=== PATIENT | female | born 1990 | race Caucasian/White ===

== ENCOUNTER 2018-11-10 22:23 | Inpatient (IN) | payer MEDICAID ==
[~2018-11-10] VITALS: Ht 157.5 cm; Wt 70.8 kg
[2018-11-11] VITALS (13 sets, daily range): BP systolic 104–133; BP diastolic 67–89
[2018-11-11] MEDS ORDERED: IBUPROFEN 800 MG TABLET PO ONE (00:30)
[2018-11-11] MEDS ORDERED: ZOLPIDEM TARTRATE 10 MG TABLET PO ONE (00:30)
[2018-11-11 00:52] LABS: BASOPHILS % (AUTO) 0.5 % (0.0-2.0); EOSINOPHILS % (AUTO) 0.1 % (1.0-6.0); HEMATOCRIT 47.5 % (36-46); HEMOGLOBIN 15.9 g/dL (12.0-16.0); LYMPHOCYTES % (AUTO) 45.4 % (22.0-44.0); MEAN CORPUSCULAR HEMOGLOBIN 32.2 pg (26.0-34.0); MEAN CORPUSCULAR HGB CONC 33.4 G/dL (31.0-37.0); MEAN CORPUSCULAR VOLUME 96 fL (80-100); MONOCYTES # (AUTO) 0.5 K/uL (0.1-1.0); NEUTROPHILS # (AUTO) 3.2 K/uL (1.8-7.7); PLATELET COUNT (AUTO) 332 K/uL (150-450); RED BLOOD CELL COUNT(AUTO) 4.93 MIL/uL (4.00-5.20); RED CELL DISTRIBUTION WIDTH 12.7 % (11.5-14.5)
[2018-11-11 01:00] LABS: ANION GAP 13 mmol/L (8-16); CALCIUM, TOTAL 9.1 mg/dL (8.8-10.5); CARBON DIOXIDE 26 mmol/L (22-29); CHLORIDE 105 mmol/L (98-107); CREATININE 0.82 mg/dL (0.60-1.30); GLOMERULAR FILTR. RATE CALC > 60 mL/min (>60); GLUCOSE,RANDOM 120 mg/dL (70-110); POTASSIUM 4.2 mmol/L (3.5-5.1); SODIUM SERUM 144 mmol/L (136-145); UREA NITROGEN, BLOOD 8 mg/dL (7-18)
[2018-11-11 01:14] LABS: ALANINE AMINOTRANSFERASE 42 U/L (12-78); ALBUMIN 4.3 g/dL (3.4-5.0); ALKALINE PHOSPHATASE 72 U/L (46-116); ASPARTATE AMINOTRANSFERASE 26 U/L (15-37); BILIRUBIN,TOTAL 0.4 mg/dL (0.1-1.0); HCG,QUANTITATIVE 1 mIU/mL (0-6); TOTAL PROTEIN, SERUM 8.5 g/dL (6.4-8.2)
[2018-11-11 01:21] LABS: AMPHET/METH SCREEN,URINE NEGATIVE (NEGATIVE); BARBITURATE SCREEN, URINE NEGATIVE (NEGATIVE); BENZODIAZEPINES SCREEN,URINE NEGATIVE (NEGATIVE); CANNABINOID SCREEN,URINE NEGATIVE (NEGATIVE); COCAINE SCREEN,URINE POSITIVE (NEGATIVE); METHADONE SCREEN, URINE NEGATIVE (NEGATIVE); OPIATE SCREEN,URINE NEGATIVE (NEGATIVE)
[2018-11-11 01:22] LABS: PHENCYCLIDINE SCREEN,URINE NEGATIVE (NEGATIVE)
[2018-11-11] MEDS ORDERED: HALOPERIDOL 5 MG TABLET PO PRN (02:00)
[2018-11-11] MEDS ORDERED: LORazepam 2 MG TABLET PO PRN (02:00)
[2018-11-11] MEDS ORDERED: ZOLPIDEM TARTRATE 10 MG TABLET PO PRN (02:00)
[2018-11-11] MEDS ORDERED: NICOTINE 14 MG/24 HOUR PATCH TD PRN (07:15)
[2018-11-11] MEDS ORDERED: ONDANSETRON HCL 4 MG TABLET PO PRN (07:15)
[2018-11-11] MEDS ORDERED: CloNIDine HCL 0.1 MG TABLET PO PRN (07:15)
[2018-11-11] MEDS ORDERED: DOCUSATE SODIUM 100 MG CAPSULE PO PRN (07:15)
[2018-11-11] MEDS ORDERED: GuaiFENesin/D-METHORPHAN [SUGAR-FREE] 200-20MG/10 ML SYRUP UDCUP PO PRN (07:15)
[2018-11-11] MEDS ORDERED: LOPERAMIDE HCL 2 MG CAPSULE PO PRN (07:15)
[2018-11-11] MEDS ORDERED: PETROLATUM,WHITE 28 GM JELLY TP PRN (07:15)
[2018-11-11] MEDS ORDERED: MAGNESIUM HYDROXIDE SUSPENSION 30 ML UDCUP PO PRN (07:15)
[2018-11-11] MEDS ORDERED: MAG HYDROX/AL HYDROX/SIMETH ES 30 ML SUSPENSION UDCUP PO PRN (07:15)
[2018-11-11] MEDS ORDERED: ALBUTEROL SULFATE HFA 90 MCG/PUFF 8 GM INHALER IH PRN (07:15)
[2018-11-11] MEDS: VENLAFAXINE HCL 75 MG ER CAPSULE PO SCH (11:45)
[2018-11-11] MEDS: IBUPROFEN 400 MG TABLET PO PRN (17:24)
[2018-11-11] MEDS: ACETAMINOPHEN 325 MG TABLET PO PRN (21:37)
[2018-11-12] VITALS (7 sets, daily range): BP systolic 113–128; BP diastolic 65–85
[2018-11-12 08:03] LABS: BASOPHILS % (AUTO) 1.1 % (0.0-2.0); EOSINOPHILS % (AUTO) 0.6 % (1.0-6.0); HEMATOCRIT 40.8 % (36-46); HEMOGLOBIN 14.1 g/dL (12.0-16.0); LYMPHOCYTES # (AUTO) 1.5 K/uL (1.0-4.8); LYMPHOCYTES % (AUTO) 35.3 % (22.0-44.0); MEAN CORPUSCULAR HEMOGLOBIN 32.7 pg (26.0-34.0); MEAN CORPUSCULAR HGB CONC 34.5 G/dL (31.0-37.0); MEAN CORPUSCULAR VOLUME 95 fL (80-100); MONOCYTES # (AUTO) 0.3 K/uL (0.1-1.0); MONOCYTES % (AUTO) 7.7 % (2.0-9.0); NEUTROPHILS # (AUTO) 2.4 K/uL (1.8-7.7); NEUTROPHILS % (AUTO) 55.3 % (40.0-70.0); PLATELET COUNT (AUTO) 273 K/uL (150-450); RED CELL DISTRIBUTION WIDTH 12.5 % (11.5-14.5)
[2018-11-12 08:33] LABS: HEMOGLOBIN A1C 5.9 % (4.5-6.2)
[2018-11-12] MEDS: ACETAMINOPHEN 325 MG TABLET PO PRN (08:36)
[2018-11-12] MEDS: VENLAFAXINE HCL 75 MG ER CAPSULE PO SCH (08:37)
[2018-11-12 08:39] LABS: ALANINE AMINOTRANSFERASE 31 U/L (12-78); ALBUMIN 3.7 g/dL (3.4-5.0); ALKALINE PHOSPHATASE 59 U/L (46-116); ANION GAP 9 mmol/L (8-16); ASPARTATE AMINOTRANSFERASE 26 U/L (15-37); BILIRUBIN,TOTAL 1.3 mg/dL (0.1-1.0); CARBON DIOXIDE 24 mmol/L (22-29); CHLORIDE 103 mmol/L (98-107); CHOL/HDL RATIO 5.2 (3.9-5.7); CHOLESTEROL 298 mg/dL (131-200); CREATININE 0.81 mg/dL (0.60-1.30); GLOMERULAR FILTR. RATE CALC > 60 mL/min (>60); GLUCOSE,RANDOM 99 mg/dL (70-110); HDL CHOLESTEROL 57 mg/dL (40-60); POTASSIUM 3.9 mmol/L (3.5-5.1); SODIUM SERUM 136 mmol/L (136-145); THYROID STIMULATING HORMONE 1.54 uIU/mL (0.36-3.74); TRIGLYCERIDES 498 mg/dL (15-150); UREA NITROGEN, BLOOD 7 mg/dL (7-18)
[2018-11-12] MEDS: IBUPROFEN 400 MG TABLET PO PRN (20:25)
[2018-11-13 07:02] VITALS: BP 150/64
[2018-11-13 07:03] VITALS: BP 150/64
[2018-11-13] MEDS ORDERED: VENL-67 PO (07:37)
[2018-11-13 08:18] VITALS: BP 117/71
[2018-11-13 08:23] VITALS: BP 117/86
[2018-11-13] MEDS: VENLAFAXINE HCL 75 MG ER CAPSULE PO SCH (09:25)
== END 2018-11-13 13:40 | disposition home or self-care (01) | DRG 751 ==
LOC: EMS 22:23 → B3A 11-11 04:40
PROVIDERS: ADMIT Psychiatry & Neurology Psychiatry; ATTEND Psychiatry & Neurology Psychiatry
DX: F33.2 Major depressive disorder, recurrent severe without psychotic features (principal); R45.851 Suicidal ideations; E78.5 Hyperlipidemia, unspecified; F10.129 Alcohol abuse with intoxication, unspecified; F14.10 Cocaine abuse, uncomplicated; Y90.8 Blood alcohol level of 240 mg/100 ml or more; R73.9 Hyperglycemia, unspecified; D72.819 Decreased white blood cell count, unspecified; F41.9 Anxiety disorder, unspecified; Z71.41 Alcohol abuse counseling and surveillance of alcoholic; Z71.51 Drug abuse counseling and surveillance of drug abuser; Z81.8 Family history of other mental and behavioral disorders
CPT/HCPCS: 83036; 84439; 84443; G0480